=== PATIENT | male | born 1940 | race Caucasian/White ===

== ENCOUNTER 2022-07-08 12:22 | Emergency (ER) | payer MEDICARE, OTHER ==
[2022-07-08 13:16] LABS: CHLORIDE,CL 105 mmol/L (98-107); SODIUM,NA 140 mmol/L (136-145)
[2022-07-08 13:19] LABS: ANION GAP 17.3 mmol/L (5-15); ESTIMATED GFR 32 mL/min (>=60)
[2022-07-10] MEDS ORDERED: Orphenadrine 60 MG/2 ML Inj IM ONE (10:34)
[2022-07-10] MEDS ORDERED: Ketorolac 30 MG/ML SDV IM ONE (10:34)
== END 2022-07-08 14:20 | disposition home or self-care (01) ==
LOC: VM.ED 12:22
DX: I63.9 Cerebral infarction, unspecified (principal); I10 Essential (primary) hypertension; Z88.2 Allergy status to sulfonamides; Z79.82 Long term (current) use of aspirin
CPT/HCPCS: 36415; 70450; 80053; 83880; 84484; 85025; 85610; 93005; 93010; 99284